=== PATIENT | male | born 1975 | race Caucasian/White ===

== ENCOUNTER → 2016-12-16 | Outpatient (CLI) | payer BC | LOC: COL.RAD 07:30 | DX: D35.2 Benign neoplasm of pituitary gland (principal); R74.0 Nonspecific elevation of levels of transaminase and lactic acid dehydrogenase [LDH]; R74.8 Abnormal levels of other serum enzymes; E23.0 Hypopituitarism | CPT/HCPCS: A9585 ==

== ENCOUNTER → 2017-01-05 | Outpatient (CLI) | payer BC | LOC: SUN.DIA | DX: E11.9 Type 2 diabetes mellitus without complications (principal); Z79.4 Long term (current) use of insulin; E78.5 Hyperlipidemia, unspecified; I10 Essential (primary) hypertension; E66.9 Obesity, unspecified; Z68.37 Body mass index [BMI] 37.0-37.9, adult; Z71.3 Dietary counseling and surveillance; Z72.0 Tobacco use | CPT/HCPCS: G0108 ==

== ENCOUNTER → 2017-06-02 | Outpatient (CLI) | payer BC | LOC: COL.RAD 08:28 | DX: R11.10 Vomiting, unspecified (principal); K21.9 Gastro-esophageal reflux disease without esophagitis; R13.10 Dysphagia, unspecified; R68.89 Other general symptoms and signs; K76.0 Fatty (change of) liver, not elsewhere classified; R79.9 Abnormal finding of blood chemistry, unspecified; R94.5 Abnormal results of liver function studies | CPT/HCPCS: A9541 ==

== ENCOUNTER → 2017-06-06 | Outpatient (CLI) | payer BC ==
[~2017-06-06] VITALS: Ht 180.3 cm; Wt 130.0 kg
[2017-06-06] VITALS (11 sets, daily range): BP systolic 122–141; BP diastolic 75–93; PULSE 75–95
[~2017-06-06] MED LIST: CANA300T PO; CRESTOR 10MG10 MG PO; CYMBALTA 60MG60 MG PO; DEXILANT60 MG PO; DOSTINEX0.5 MG/TAB PO; GLUCOPHAGE1000 MG PO; LANTUS100 U/ML SQ; MIRAPEX0.5 MG PO; PRINIVIL10 MG PO; VICTOZA6 MG/ML SQ
[2017-06-06 07:32] LABS: PROTHROMBIN TIME 12.4 SECONDS (9.7-12.8)
[2017-06-06 07:33] LABS: INR 1.1 (0.8-3.0)
== END ==
LOC: COL.RAD 06:30
PROVIDERS: Radiology Diagnostic Radiology
DX: K76.0 Fatty (change of) liver, not elsewhere classified (principal)
CPT/HCPCS: J2250; J3010

== ENCOUNTER 2017-08-11 13:12 | Day surgery (SDC) | payer BC ==
[~2017-08-11] VITALS: Ht 180.3 cm; Wt 127.3 kg
[2017-08-11 15:15] VITALS: BP 114/82; PULSE 102
[2017-08-11 15:30] VITALS: BP 125/88; PULSE 97
[2017-08-11 15:45] VITALS: BP 126/88; PULSE 99
[2017-08-11 16:00] VITALS: BP 114/82; PULSE 99
[2017-08-11 16:24] VITALS: BP 124/87; PULSE 101; TEMP 97
== END 2017-08-11 16:00 | disposition home or self-care (01) ==
LOC: SDCO 13:12
DX: K92.1 Melena (principal); K64.0 First degree hemorrhoids; K21.9 Gastro-esophageal reflux disease without esophagitis; K76.0 Fatty (change of) liver, not elsewhere classified; E11.9 Type 2 diabetes mellitus without complications; E78.00 Pure hypercholesterolemia, unspecified; K74.60 Unspecified cirrhosis of liver; F17.290 Nicotine dependence, other tobacco product, uncomplicated; Z79.4 Long term (current) use of insulin; Z90.49 Acquired absence of other specified parts of digestive tract
CPT/HCPCS: J2250; J2405; J3010; J7030

== ENCOUNTER 2017-09-24 10:47 | Emergency (ER) | payer SELFPAY ==
[~2017-09-24] VITALS: Ht 180.3 cm; Wt 125.0 kg
[2017-09-24 10:51] VITALS: TEMP 99
[2017-09-24 11:19] LABS: BASO # 0.1 (0.0-0.2); BASO % 0.8 % (0.0-2.0); EOS # 0.4 (0.0-0.7); EOS % 3.4 % (0-4.0); GRAN # 6.6 (1.4-6.5); GRAN % 63.5 % (42.2-75.2); HEMATOCRIT 46.6 % (42.0-52.0); HEMOGLOBIN 16.3 g/dl (13.5-18.0); LYMPH # 2.7 (1.2-3.4); LYMPH % 26.1 % (20.0-51.0); MEAN CELL VOLUME 81 fl (80.0-100.0); MEAN CORPUSCULAR HEMOGLOBIN 28 pg (27.0-31.0); MEAN CORPUSCULAR HGB CONC 35 g/dl (33.0-37.0); MEAN PLATELET VOLUME 9.3 fl (7.4-10.4); MONO # 0.6 (0.1-0.6); PLATELET COUNT 349 K/mm3 (130-400); RED BLOOD COUNT 5.75 M/mm3 (4.20-5.60); REDCELL DISTRIBUTION WIDTH-CV 13.2 % (11.5-14.5)
[2017-09-24 11:32] LABS: ALBUMIN 4.6 gm/dL (3.5-5.0); BILIRUBIN,TOTAL 1.1 mg/dL (0.0-1.0); CALCIUM 9.9 mg/dL (8.4-10.2); CREATININE, serum 1.07 mg/dL (0.66-1.25); POTASSIUM 3.8 mmol/L (3.4-5.0); TOTAL PROTEIN 8.4 gm/dL (6.4-8.2)
[2017-09-24] MEDS ORDERED: ZOFRAN ODT4 MG PO (13:06)
[2017-09-24 13:59] VITALS: BP 123/77; PULSE 97
== END 2017-09-24 14:00 | disposition home or self-care (01) ==
LOC: COL.ER 10:47
PROVIDERS: Emergency Medicine
DX: E86.0 Dehydration (principal); R11.2 Nausea with vomiting, unspecified; E11.9 Type 2 diabetes mellitus without complications; I10 Essential (primary) hypertension; F17.290 Nicotine dependence, other tobacco product, uncomplicated; Z90.49 Acquired absence of other specified parts of digestive tract; Z79.4 Long term (current) use of insulin
CPT/HCPCS: J1885; J2405; J2550; J7030